=== PATIENT | male | born 1955 | race Caucasian/White ===

== ENCOUNTER 2019-11-03 15:23 | Inpatient (IN) | payer MEDICARE, MEDICAID ==
[~2019-11-03] VITALS: Ht 170.2 cm; Wt 109.1 kg
[2019-11-03] MEDS ORDERED: heparin 10,000 units/1 ML INJ IV ONE (15:35)
[2019-11-03] MEDS ORDERED: ondansetron/PF 4mg/2ml inj IV ONE ×2 (15:35→16:15)
[2019-11-03] MEDS ORDERED: etomidate 2mg/ml inj. IV ONE (15:35)
[2019-11-03] MEDS ORDERED: fentaNYL/PF 50MCG/1 ML 2ML syringe IV ONE (15:35)
[2019-11-03 15:45] LABS: BASOPHILS # (AUTO) 0.1 X10'3 (0-0.2); EOSINOPHILS # (AUTO) 0.2 X10'3 (0-0.9); HEMATOCRIT 44.6 % (42.0-52.0); HEMOGLOBIN 15.5 g/dl (14.0-17.9); LYMPHOCYTES # (AUTO) 1.9 X10'3 (1.1-4.8); LYMPHOCYTES % (AUTO) 22.2 % (21-51); MEAN PLATELET VOLUME 6.9 FL (7.4-10.4); MONOCYTES # (AUTO) 0.7 X10'3 (0-0.9)
[2019-11-03 15:47] LABS: EOSINOPHILS % (AUTO) 2.5 % (0-6); MEAN CORPUSCULAR HEMOGLOBIN 32.3 PG (27.0-31.0); MEAN CORPUSCULAR HGB CONC 34.7 g/dL (33.0-36.5); MEAN CORPUSCULAR VOLUME 93.1 FL (78-98); MONOCYTES % (AUTO) 7.9 % (2-12); NEUTROPHILS # (AUTO) 5.6 X10'3 (1.8-7.7); NEUTROPHILS % (AUTO) 66.4 % (42-75); PLATELET COUNT 331 X10'3 (140-440); RED BLOOD COUNT 4.79 X10'6 (4.70-6.10); RED CELL DISTRIBUTION WIDTH 14.3 % (11.5-14.5); WHITE BLOOD COUNT 8.5 X10'3 (4.5-11.0)
[2019-11-03 15:58] LABS: D-DIMER 2.48 MG/L FEU (0-0.50)
[2019-11-03 16:08] LABS: ALANINE AMINOTRANSFERASE 23 U/L (12-78); ALBUMIN 3.9 G/DL (3.4-5.0); ALKALINE PHOSPHATASE 60 IU/L (46-116); ANION GAP 11 (8-16); ASPARTATE AMINO TRANSFERASE 19 U/L (10-37); BILIRUBIN,TOTAL 0.4 MG/DL (0.1-1.0); BLOOD UREA NITROGEN 49 MG/DL (7-18); BUN/CREATININE RATIO 35.3 (5.4-32.0); CALCIUM 9.5 MG/DL (8.5-10.1); CHLORIDE 106 MMOL/L (99-107); CREATININE 1.39 MG/DL (0.60-1.10); GLUCOSE 120 MG/DL (70-104); POTASSIUM 3.5 MMOL/L (3.5-5.1); SODIUM 138 MMOL/L (135-145); TOTAL CARBON DIOXIDE 21.3 MMOL/L (24-32); TOTAL PROTEIN 7.8 G/DL (6.4-8.2); eGFR 52 ML/MIN
[2019-11-03] MEDS ORDERED: amiodarone 150mg/dext, iso-os 100 ML IV ONE (16:15)
[2019-11-03] MEDS ORDERED: iohexol 350MG/ML 100ml bottle IV ONE (17:27)
--- NOTE | 2019-11-03 17:48 | NUR ---
[facility] ct [facility]
--- NOTE | 2019-11-03 17:58 | NUR ---
pt returns from ct
[2019-11-03] MEDS ORDERED: acetaminophen 325mg tablet PO PRN (18:00)
[2019-11-03] MEDS ORDERED: mag hydrox/Alum hydrox/simeth 30ml oral suspension PO PRN (18:00)
[2019-11-03] MEDS ORDERED: magnesium hydroxide 30ml (MOM) UD suspension PO PRN (18:00)
[2019-11-03] MEDS ORDERED: ondansetron/PF 4mg/2ml inj IV PRN (18:00)
--- NOTE | 2019-11-03 18:44 | NUR ---
Patient is resting comfortably and in no distress. He denies any chest pain but reports that he can still feel the unsual heart beat. Patient updated on POC.
[2019-11-03] MEDS: normal saline 1000ml 1,000 ML IV SCH (19:09)
[2019-11-03] MEDS ORDERED: ACET-2119 PO (19:19)
[2019-11-03] MEDS ORDERED: CLON-529 PO (19:19)
[2019-11-03] MEDS ORDERED: AMLO2.5T2 PO (19:19)
[2019-11-03] MEDS ORDERED: IBUP-1986 PO (19:19)
[2019-11-03] MEDS ORDERED: LISI40TA4 PO (19:19)
[2019-11-03] MEDS ORDERED: GABA-532 PO (19:19)
[2019-11-03] MEDS ORDERED: CHOL400T14 PO (19:19)
[2019-11-03] MEDS ORDERED: TRAM50TA2 PO (19:19)
--- NOTE | 2019-11-03 19:19 | NUR ---
Med reconcilliation completed to best of patient's recollection. I am unable to obtain medications from external history and his pharmacy is closed.
[2019-11-03] MEDS ORDERED: enoxaparin 30mg/0.3ml syringe SUBCUT SCH (20:00)
[2019-11-03 20:25] VITALS: BP 125/80
--- NOTE | 2019-11-03 20:25 | NUR ---
pt arrived on unit at 2024 via gurney, able to ambulate to restroom and to bed. pt has no complaints right now other than chronic back pain. pt received ordered medications. awaiting MD to approve med rec. pt received late tray. pt then had an episode of emesis with chunks of food. as night progressed pt had the chills then had a temp of 98.5 axillary, HR of 113s, diaphoretic. contacted Dr. Sin to do an order of rapid flu test. will continue to monitor.
[2019-11-03] MEDS ORDERED: CLON0.1T51 PO (20:33)
[2019-11-03] MEDS ORDERED: GABA300C PO (20:33)
[2019-11-03] MEDS ORDERED: AMLO5TAB PO (20:33)
[2019-11-03] MEDS ORDERED: CHOL10006 PO (20:33)
[2019-11-03] MEDS ORDERED: LISI-600 PO (20:33)
[2019-11-03] MEDS: carvedilol 6.25mg tablet PO SCH (21:00)
[2019-11-03] MEDS: enoxaparin 30mg/0.3ml syringe SUBCUT SCH (21:13)
[2019-11-03] MEDS: enoxaparin 80mg/0.8ml syringe SUBCUT SCH (21:13)
[2019-11-03 22:00] VITALS: BP 125/56
[2019-11-04 02:00] VITALS: BP 118/63
[2019-11-04 03:46] LABS: BASOPHILS % (AUTO) 0.4 % (0-1); EOSINOPHILS # (AUTO) 0.1 X10'3 (0-0.9); EOSINOPHILS % (AUTO) 1.7 % (0-6); HEMATOCRIT 44.4 % (42.0-52.0); HEMOGLOBIN 15.4 g/dl (14.0-17.9); LYMPHOCYTES # (AUTO) 1.9 X10'3 (1.1-4.8); LYMPHOCYTES % (AUTO) 23.2 % (21-51); MEAN CORPUSCULAR HEMOGLOBIN 31.8 PG (27.0-31.0); MEAN CORPUSCULAR HGB CONC 34.6 g/dL (33.0-36.5); MEAN CORPUSCULAR VOLUME 91.9 FL (78-98); MEAN PLATELET VOLUME 6.9 FL (7.4-10.4); MONOCYTES # (AUTO) 0.6 X10'3 (0-0.9); MONOCYTES % (AUTO) 7.1 % (2-12); NEUTROPHILS # (AUTO) 5.6 X10'3 (1.8-7.7); NEUTROPHILS % (AUTO) 67.6 % (42-75); PLATELET COUNT 331 X10'3 (140-440); RED BLOOD COUNT 4.83 X10'6 (4.70-6.10); RED CELL DISTRIBUTION WIDTH 14.1 % (11.5-14.5); WHITE BLOOD COUNT 8.4 X10'3 (4.5-11.0)
[2019-11-04] MEDS: normal saline 1000ml 1,000 ML IV SCH (03:57)
[2019-11-04 04:02] LABS: ALBUMIN 3.6 G/DL (3.4-5.0); ANION GAP 9 (8-16); BLOOD UREA NITROGEN 36 MG/DL (7-18); BUN/CREATININE RATIO 27.7 (5.4-32.0); CALCIUM 9.2 MG/DL (8.5-10.1); CHLORIDE 106 MMOL/L (99-107); GLUCOSE 127 MG/DL (70-104); POTASSIUM 3.3 MMOL/L (3.5-5.1); SODIUM 139 MMOL/L (135-145); TOTAL CARBON DIOXIDE 24.4 MMOL/L (24-32); eGFR 56 ML/MIN
--- NOTE | 2019-11-04 05:20 | NUR ---
rapid flu test ordered. came back negative.
[2019-11-04 06:00] VITALS: BP 135/81
--- NOTE | 2019-11-04 06:20 | NUR ---
Patient in room MED 309. I have received report from ARIAS Colon and had the opportunity to ask questions and assume patient care.
--- NOTE | 2019-11-04 06:21 | NUR ---
pt no longer on droplet precautions. flu test negative.
--- NOTE | 2019-11-04 07:11 | NUR ---
Paged Dr. Flores regarding Med Rec: "PAGER ID: [phone] MESSAGE: [phone] Please reconcile home meds. Thanks!! Eda [phone] [phone]"
[2019-11-04] MEDS ORDERED: TRAZ-251 PO (07:37)
[2019-11-04] MEDS ORDERED: TIZA4TAB5 PO (07:37)
[2019-11-04] MEDS ORDERED: CHLO25TA10 PO (07:37)
[2019-11-04] MEDS ORDERED: FLO0.4C PO (07:37)
[2019-11-04] MEDS ORDERED: IBUP-1985 PO (07:37)
[2019-11-04] MEDS: carvedilol 6.25mg tablet PO SCH (08:01)
[2019-11-04] MEDS: enoxaparin 30mg/0.3ml syringe SUBCUT SCH (08:02)
[2019-11-04] MEDS: enoxaparin 80mg/0.8ml syringe SUBCUT SCH (08:03)
[2019-11-04] MEDS ORDERED: APIX5TAB3 PO (10:50)
[2019-11-04] MEDS ORDERED: CARV6.253 PO (10:50)
[2019-11-04 11:00] VITALS: BP 135/86
[2019-11-04] MEDS ORDERED: pneumococcal 23-VAL P-sac vacc 25 mcg/0.5ml vial IMVAC ONE (11:15)
--- NOTE | 2019-11-04 12:19 | NUR ---
Patient stable for discharge per MD orders. All discharge instructions reviewed, prescriptions e-sent to [facility] pharmacy in [place]. Education provided on atrial fibrillation, eliquis, lovenox, and pneumonia vaccination. Pneumonia vaccination given prior to discharge. Eliquis coupon given to patient. All patient questions answered. PIVs x2 discontinued, cannulas intact. Clean, dry dressings in place. All personal belongings collected and sent with patient. Patient ambulated out of facility at 1217, to transport self home. Refused wheelchair or escort to vehicle.
--- NOTE | 2019-11-06 13:57 | NUR ---
Case Management DC follow up: LM/VM asking for rtn call questions/concerns, post DC status
== END 2019-11-04 12:17 | disposition home or self-care (01) | DRG 309 ==
LOC: ER 15:23 → ED HOLD 17:57 → MED 3N 20:20
PROVIDERS: ADMIT Family Medicine; ATTEND Family Medicine
PROC: B32T1ZZ Computerized Tomography (CT Scan) of Left Pulmonary Artery using Low Osmolar Contrast (ICD-10-PCS; 2019-11-03)
PROC: B3201ZZ Computerized Tomography (CT Scan) of Thoracic Aorta using Low Osmolar Contrast (ICD-10-PCS; 2019-11-03)
PROC: B32S1ZZ Computerized Tomography (CT Scan) of Right Pulmonary Artery using Low Osmolar Contrast (ICD-10-PCS; 2019-11-03)
PROC: 5A2204Z Restoration of Cardiac Rhythm, Single (ICD-10-PCS; 2019-11-03)
PROC: 3E0234Z Introduction of Serum, Toxoid and Vaccine into Muscle, Percutaneous Approach (ICD-10-PCS; principal; 2019-11-04)
DX: I48.91 Unspecified atrial fibrillation (principal); I24.9 Acute ischemic heart disease, unspecified; G89.29 Other chronic pain; I10 Essential (primary) hypertension; N28.9 Disorder of kidney and ureter, unspecified; N40.0 Benign prostatic hyperplasia without lower urinary tract symptoms; M54.9 Dorsalgia, unspecified; Z23 Encounter for immunization; Z91.040 Latex allergy status
CPT/HCPCS: 36415; 71045; 71275; 80048; 80053; 84439; 84443; 84484; 85025; 85379; 87081; 87502; 87503; 90732; 93005; 93306; 94760; G0378; J0282; J1644; J1650; J2405; J3010; J7030; Q9967

== ENCOUNTER 2020-09-05 13:50 | Day surgery (SDC) | payer MEDICARE, MEDICAID ==
[~2020-09-05] VITALS: Ht 167.6 cm; Wt 117.6 kg
[2020-09-05] VITALS (8 sets, daily range): BP systolic 108–139; BP diastolic 56–108
[~2020-09-05 13:50] MED LIST: ACET-2119 PO; APIX5TAB3 PO; CARV6.253 PO; CHLO25TA10 PO; CHOL10006 PO; GABA300C PO; LISI-600 PO; TIZA4TAB5 PO; TRAM50TA2 PO; TRAZ-251 PO
[2020-09-05] MEDS ORDERED: normal saline 1000ml 1,000 ML IV SCH (14:20)
[2020-09-05] MEDS ORDERED: fentaNYL/PF 50MCG/1 ML 2ML syringe IV ONE (14:20)
[2020-09-05] MEDS ORDERED: MIDAZolam 1mg/ml 10ml vial IV ONE (14:20)
[2020-09-05] MEDS ORDERED: CARV-50 PO (14:45)
[2020-09-05] MEDS ORDERED: AMIO200T62 PO (14:45)
[2020-09-05] MEDS ORDERED: APIX5TAB3 PO (14:45)
[2020-09-05] MEDS ORDERED: CYCL-1 PO (14:45)
[2020-09-05] MEDS ORDERED: ACET-1015 PO (14:45)
== END 2020-09-05 17:35 | disposition home or self-care (01) ==
LOC: SSTAY O 13:50
PROVIDERS: ATTEND Student in an Organized Health Care Education/Training Program
DX: I48.91 Unspecified atrial fibrillation (principal); G47.33 Obstructive sleep apnea (adult) (pediatric); I10 Essential (primary) hypertension; Z86.19 Personal history of other infectious and parasitic diseases; Z79.01 Long term (current) use of anticoagulants; Z79.899 Other long term (current) drug therapy; Z87.891 Personal history of nicotine dependence
CPT/HCPCS: 92960; 93005; 94799; J2250; J3010; J7030

== ENCOUNTER 2021-01-13 07:21 | Day surgery (SDC) | payer MEDICARE, MEDICAID ==
[2021-01-06 15:26] LABS: BASOPHILS % (AUTO) 0.4 % (0-1); EOSINOPHILS # (AUTO) 0.1 X10'3 (0-0.9); EOSINOPHILS % (AUTO) 1.6 % (0-6); LYMPHOCYTES # (AUTO) 1.6 X10'3 (1.1-4.8); LYMPHOCYTES % (AUTO) 23.6 % (21-51); MEAN CORPUSCULAR HGB CONC 33.3 g/dL (33.0-36.5); MEAN CORPUSCULAR VOLUME 93.2 FL (78-98); MEAN PLATELET VOLUME 6.9 FL (7.4-10.4); MONOCYTES # (AUTO) 0.5 X10'3 (0-0.9); MONOCYTES % (AUTO) 8.1 % (2-12); NEUTROPHILS # (AUTO) 4.5 X10'3 (1.8-7.7); NEUTROPHILS % (AUTO) 66.3 % (42-75); PRE OP HEMATOCRIT 42.9 % (42.0-52.0); PRE OP HEMOGLOBIN 14.3 g/dL (14.0-17.9); PRE OP PLATELET COUNT 296 X10'3 (140-440); RED BLOOD COUNT 4.61 X10'6 (4.70-6.10); RED CELL DISTRIBUTION WIDTH 14.7 % (11.5-14.5)
[2021-01-06 15:38] LABS: PRE OP INR 1.1 INR; PRE OP PROTIME 11.2 SECONDS (9.0-12.0)
[2021-01-06 15:41] LABS: ALBUMIN 3.7 G/DL (3.4-5.0); ALKALINE PHOSPHATASE 55 IU/L (46-116); BLOOD UREA NITROGEN 24 MG/DL (7-18); BUN/CREATININE RATIO 18.9 (5.4-32.0); CALCIUM 9.2 MG/DL (8.5-10.1); CHLORIDE 105 MMOL/L (99-107); CREATININE 1.27 MG/DL (0.60-1.10); PRE OP ALT 31 U/L (30-65); PRE OP ANION GAP 9 (8-16); PRE OP BILIRUB, TOTAL 0.4 MG/DL (0.0-1.0); PRE OP GLUCOSE 99 MG/DL (70-104); PRE OP SODIUM 138 MMOL/L (135-145); TOTAL CARBON DIOXIDE 23.8 MMOL/L (24-32); TOTAL PROTEIN 7.4 G/DL (6.4-8.2); eGFR 57 ML/MIN
[2021-01-06 15:59] LABS: PRE OP AST 24 U/L (10-37)
[~2021-01-13] VITALS: Ht 170.2 cm; Wt 106.9 kg
[2021-01-13] VITALS (7 sets, daily range): BP systolic 104–119; BP diastolic 62–88
[~2021-01-13 07:21] MED LIST changes: +ACET-1015 PO; -ACET-2119 PO; +BUPIVAcaine/PF 2.5 mg/ml (0.25%) 30ml vial ONE; +CARV-50 PO; -CARV6.253 PO; +CYCL-1 PO; +DOCUMENT DATE & TIME OF BETA-BLOCKER PO ONE; -LISI-600 PO; +LISI20TA28 PO; +cefazolin/dext.iso 2gm/100ml 100 ML IV ONE; +famotidine 20mg tablet PO ONE; +ringers solution, lacted 1,000 ML IV SCH
[2021-01-13] MEDS ORDERED: ROPIVAcaine 0.5% (5mg/ml) 30ml vial ONE (09:36)
[2021-01-13] MEDS ORDERED: propofol inj 20 ML IV ONE (09:36)
[2021-01-13] MEDS ORDERED: midazolam 1 mg/ML 2ml injection ONE (10:01)
[2021-01-13] MEDS ORDERED: fentaNYL/PF 50MCG/1 ML 2ML syringe ONE (10:01)
[2021-01-13] MEDS ORDERED: proCHLORperazine 10 MG/2 ml inj IV PRN (10:45)
[2021-01-13] MEDS ORDERED: ondansetron/PF 4mg/2ml inj IV PRN (10:45)
[2021-01-13] MEDS ORDERED: morphine 4 MG/ML inj SYRINge IV PRN (10:45)
[2021-01-13] MEDS ORDERED: ringers solution, lacted 1,000 ML IV SCH (10:45)
[2021-01-13] MEDS ORDERED: meperidine/PF 25mg/ml syringe IV PRN ×3 (10:45)
[2021-01-13] MEDS ORDERED: morphine 2 MG/ML inj. syringe IV PRN (10:45)
--- NOTE | 2021-01-13 11:14 | NUR ---
Received from OR via , accompanied by Anesthesiologist DR OCHOA and report given by Anesthesiolgist. AWAKENS TO VOICE. VITALS STABLE. DRESSING DI. BENI PAIN.
--- NOTE | 2021-01-13 12:24 | NUR ---
AWAKE AND ORIENTED. VITALS STABLE. DRESSING DI. STATES PAIN IMPROVING. HOME WITH A FRIEND AT THIS TIME.
== END 2021-01-13 12:24 | disposition home or self-care (01) ==
LOC: PAS 07:21
PROVIDERS: ATTEND Orthopaedic Surgery Hand Surgery
DX: T84.84XA Pain due to internal orthopedic prosthetic devices, implants and grafts, initial encounter (principal); M19.032 Primary osteoarthritis, left wrist; M19.031 Primary osteoarthritis, right wrist; G89.29 Other chronic pain; M41.9 Scoliosis, unspecified; G89.18 Other acute postprocedural pain; E66.01 Morbid (severe) obesity due to excess calories; Z68.38 Body mass index [BMI] 38.0-38.9, adult; G47.30 Sleep apnea, unspecified; J45.909 Unspecified asthma, uncomplicated; I10 Essential (primary) hypertension; I48.91 Unspecified atrial fibrillation; Z86.19 Personal history of other infectious and parasitic diseases; Z79.899 Other long term (current) drug therapy; Z79.01 Long term (current) use of anticoagulants; Z91.040 Latex allergy status; Z98.890 Other specified postprocedural states; Z87.891 Personal history of nicotine dependence; Y83.8 Other surgical procedures as the cause of abnormal reaction of the patient, or of later complication, without mention of misadventure at the time of the procedure; Y92.89 Other specified places as the place of occurrence of the external cause
CPT/HCPCS: 20680; 36415; 64415; 71046; 76942; 80053; 82948; 85025; 85610; 85730; 93005; A6222; J2175; J2250; J2704; J3010; J3490; J7120; A4618; A6449; A7000; J2795